=== PATIENT | male | born 1965 | race Caucasian/White ===

== ENCOUNTER → 2018-09-15 | Outpatient (CLI) | payer OTHER ==
[~2018-09-15] MED LIST: ALLO300T2 PO; ASPI-555 PO; CEFA1I IVP; FLEC100T3 PO; FLUD0.1T2 PO; LORA0.5T2 PO; OMEP20CA4 PO; SOTA120T PO
== END | disposition home or self-care (01) ==
LOC: RAH 14:11
PROVIDERS: ATTEND Internal Medicine Infectious Disease
DX: R50.9 Fever, unspecified (principal)
CPT/HCPCS: 78806; A9556

== ENCOUNTER 2021-08-19 05:25 | Emergency (ER) | payer OTHER ==
[~2021-08-19] VITALS: Ht 188 cm; Wt 136.1 kg
[~2021-08-19 05:25] MED LIST changes: -ASPI-555 PO; +ASPI-556 PO
[2021-08-19 05:58] LABS: BASOPHILS % (AUTO) 0.5 % (0.0-5.0); EOSINOPHILS % (AUTO) 3.6 % (0.0-8.0); HEMATOCRIT 44.9 % (42-54); MEAN CORPUSCULAR HEMOGLOBIN 32.9 pg (27.0-33.0); MEAN CORPUSCULAR VOLUME 94.1 fL (79-99); MONOCYTES % (AUTO) 9.3 % (3.0-13.0); NEUTROPHILS % (AUTO) 74.3 % (40.0-77.0); PLATELET COUNT (AUTO) 142 K/uL (130-400); RED BLOOD CELL COUNT(AUTO) 4.77 MIL/uL (4.50-6.20); RED CELL DISTRIBUTION WIDTH 12.3 % (11.0-15.5); WHITE BLOOD COUNT (AUTO) 9.1 K/uL (4.8-10.8)
[2021-08-19 06:14] LABS: ALBUMIN 3.7 g/dL (3.5-5.0); BILIRUBIN,TOTAL 0.9 mg/dL (0.2-1.0); CREATININE 1.3 mg/dL (0.5-1.5); POTASSIUM 4.3 mmol/L (3.5-5.1); TOTAL PROTEIN, SERUM 7.7 g/dL (6.0-8.3)
[2021-08-19 06:20] LABS: APPEARANCE,URINE CLEAR (CLEAR); BILIRUBIN,URINE NEGATIVE (NEGATIVE); COLOR,URINE YELLOW (YELLOW); GLUCOSE, URINE (UA) NEGATIVE (NEGATIVE); KETONES,URINE NEGATIVE (NEGATIVE); LEUKOCYTE ESTERASE ,URINE NEGATIVE (NEGATIVE); NITRATE,URINE NEGATIVE (NEGATIVE); OCCULT BLOOD,URINE TRACE-INTACT (NEGATIVE); PH,URINE 5.5 (5.0-8.0); PROTEIN,URINE NEGATIVE (NEGATIVE); UROBILINOGEN,URINE 0.2 mg/dL (0.2-1.0)
[2021-08-19 07:13] LABS: BACTERIA,URINE Few /HPF (None Seen); RBC,URINE 0-1 /HPF (0-1); SQUAMOUS EPITHELIAL CELL,UR 0-2 /HPF (0-2); WBC,URINE None Seen /HPF (0-1)
[2021-08-19] MEDS ORDERED: BENZ-39 PO (07:14)
[2021-08-19] MEDS ORDERED: P EP PO (07:14)
[2021-08-19] MEDS ORDERED: ALBU0.63 IH (07:20)
[2021-08-19 08:09] VITALS: BP 111/65
== END 2021-08-19 08:32 | disposition home or self-care (01) ==
LOC: EDH 05:25
DX: B34.9 Viral infection, unspecified (principal); Z20.822 Contact with and (suspected) exposure to COVID-19; K21.9 Gastro-esophageal reflux disease without esophagitis; M10.9 Gout, unspecified; Z79.82 Long term (current) use of aspirin; Z79.899 Other long term (current) drug therapy; Z95.810 Presence of automatic (implantable) cardiac defibrillator
CPT/HCPCS: 36415; 71045; 80053; 81001; 85025; 87040 ×2; 87635; 87804 ×2; 93005; 99285; C9803

== ENCOUNTER 2024-11-09 01:18 | Emergency (ER) | payer OTHER ==
[~2024-11-09] VITALS: Ht 185.4 cm; Wt 133.4 kg
[~2024-11-09 01:18] MED LIST changes: +ALBU0.63 IH; +BENZ-39 PO; +P EP PO
--- NOTE | 2024-11-09 01:25 | NUR ---
PRESSURE DEVICE APPLIED TO PT NOSE AT THIS TIME DUE TO NOSE BLEED. PT BLEEDING FROM BILAT NARES FOR PAST HOUR AND A HALF.
--- NOTE | 2024-11-09 01:28 | NUR ---
PT ARRIVED C/O NOSE BLEED FOR PAST HOUR AND A HALF/ PT BLEEDING FROM BOTH NARES. PT APPEARS ANXIOUS AT THIS TIME. VOICED DUE TO AMOUNT OF BLEEDING AND HAVING TO SPIT UP BLOOD. PT DENIES ANY BLOOD THINNERS ONLY ASPRIN 81 MG DAILY. NO TRAUMA PRIOR TO NOSE BLEED PER PT.
[2024-11-09] MEDS: OXYmetazoline HCL SPRAY 100 SPRAYS/15 ML BOTTLE EN ONE (01:43)
[2024-11-09] MEDS ORDERED: TRANEXAMIC ACID 1000MG/10ML TP STA (01:51)
[2024-11-09] MEDS ORDERED: TRANEXAMIC ACID 1000MG/10ML ONE (01:57)
--- NOTE | 2024-11-09 02:04 | NUR ---
ROBYN VILLALOBOS SOAK WITH TXA APPLIED TO Keiko ROLLE AT 0203.
--- NOTE | 2024-11-09 02:06 | ERN ---
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 Patient reports he only takes aspirin 81 mg daily. Denies any nose trauma. Allergies: Coded Allergies: No Known Drug Allergies (Verified Allergy, 05/07/12) Home Meds Active Scripts Amoxicillin/Potassium Clav (Amox Tr-K Clv 875-125 mg Tab) 875 Mg-125 Mg Tablet, 1 TAB PO BID for 7 Days, #14 TAB 0 Refills Prov:SIDNEY FALL SITE TECHNICIAN 11/09/24 Albuterol Sulfate (Albuterol Sulfate) 0.63 Mg/3 Ml Vial.neb, 0.63 MG IH QID for 7 Days, #1 INH 1 Refill Prov:GERMAN CONCEPCION MD 08/19/21 Benzonatate (Tessalon Perles) 100 Mg Cap, 100 MG PO QID for 10 Days, #40 CAP Prov:GERMAN CONCEPCION MD 08/19/21 P-Ephed HCl/Codeine/Guaifen (Coditussin DAC Liquid) 473 Ml Liquid, 10 ML PO Q6HPRN, #250 ML Prov:GERMAN CONCEPCION MD 08/19/21 Cefazolin Sodium (Ancef/Kefzol) 1 Gm/Vial Inj, 2 GM IVP Q8H for 14 Days, #14 DAYS Prov:JAYE FUCHS Jr., MD 08/25/18 Reported Medications Sotalol HCl (Sotalol) 120 Mg Tablet, 120 MG PO TID, TAB 08/20/18 Flecainide Acetate (Flecainide Acetate) 100 Mg Tablet, 200 MG PO BID, TAB 08/20/18 Fludrocortisone Acetate (Fludrocortisone Acetate) 0.1 Mg Tablet, 0.1 MG PO DAILY, TAB 08/20/18 Lorazepam (Lorazepam) 0.5 Mg Tablet, 0.5 MG PO TIDP PRN for ANXIETY/AGITATION, TAB 08/20/18 Aspirin (Aspir 81) 81 Mg Tablet.dr, 81 MG PO HS, TAB 02/06/15 Omeprazole (Prilosec) 20 Mg Capsule.dr, 20 MG PO DAILY, CAP 02/06/15 Allopurinol (Allopurinol) 300 Mg Tablet, 300 MG PO HS, TAB 02/06/15 Past Medical History Past Medical History: Heart Disease Additional Past Medical Hx: GOUT Surgical History: Pacer/AICD Surgical History Other: CARDIAC ABLATION X 2 RN Note Reviewed/Agreed w/PFSH: Yes Review of System Dictation Constitutional: Negative for fever,chills, and weight loss Eyes: Negative for injury, pain,redness, and discharge ENT positive for right nostril bleed Cardiovascular: Negative for chest pain, palpitations, and edema Respiratory: Negative for shortness of breath, cough, and wheezing, Abdomen/GI: Negative for abdominal pain, nausea, vomiting, diarrhea, and constipation Back: Negative for injury and pain : Negative for injury, bleeding and discharge MS/Extremity: Negative for injury and deformity Skin: Negative for rash, and discoloration Neuro: Negative for headache, weakness, numbness, tingling, and seizure Psych: Negative for suicide ideation, homicidal ideation, and hallucinations Initial Vital Sign VS Vital Signs Date Time Temp Pulse Resp B/P (MAP) Pulse Ox O2 Delivery O2 Flow Rate FiO2 11/09/24 01:23 97.9 73 20 129/89 97 Room Air 11/09/24 01:37 0 21 Physical Exam Dictation Vital Signs reviewed General Appearance: Alert, oriented x 3, no acute distress, well developed, nourished. Head and Face: non-traumatic. Eyes: PERRL, pink conjunctivas, eyelid no trauma, anterior chamber with arcus senilis. Ears: Pinnas intact and no signs of trauma or erythema ear canals clear and no discharge TM no erythema Nose: No discharge, right nostril bright red bleeding Oropharynx: Mouth normal, tongue pink. pharynx clear,no erythema, tonsils no exudates, no abscesses noted, mucous membrane moist Neck: Supple, non-tender, no thyromegaly, no masses, no JVD, no bruits Breast:Deferred Chest:No tenderness, no crepitus, no paradoxical movement, no retractions Lungs:Clear, well-ventilated, symmetric, no rales, no wheezing, no rhonchi, no stridor, good breath sounds bilaterally Heart: Regular rate, regular rhythm, no murmur, no gallops Vascular: no peripheral edema, Abdomen: Soft, positive bowel sounds, nondistended, no guarding, nontender, no rebound, no masses no hepatomegaly, no splenomegaly, no Rios's sign, no hernias. Rectal: Deferred Genital: Deferred Neurological: Normal speech, motor function intact, sensory function intact Musculoskeletal: Neck nontender, full range of motion, back nontender, full range of motion, Extremities: nontender, full range of motion Skin: Color pink, dry, no turgor, no rash, no lacerations, no abrasions, no contusions. Lymphatic: Deferred Results (Laboratory/Radiology) Laboratory/Radiology Laboratory Tests Test 11/09/24 02:15 White Blood Count 7.9 K/uL (4.8-10.8) Red Blood Count 4.92 MIL/uL (4.50-6.20) Hemoglobin 16.2 g/dL (14.0-18.0) Hematocrit 45.4 % (42-54) Mean Corpuscular Volume 92.3 fL (79-99) Mean Corpuscular Hemoglobin 32.9 pg (27.0-33.0) Mean Corpuscular Hemoglobin Concent 35.7 g/dL (32.0-36.0) Red Cell Distribution Width 12.8 % (11.0-15.5) Platelet Count 165 K/uL (130-400) Mean Platelet Volume 11.0 fL (7.5-10.5) H Immature Granulocyte % (Auto) 0.4 % (0-1) Neutrophils (%) (Auto) 55.2 % (40.0-77.0) Lymphocytes (%) (Auto) 34.0 % (21.0-51.0) Monocytes (%) (Auto) 6.3 % (3.0-13.0) Eosinophils (%) (Auto) 3.5 % (0.0-8.0) Basophils (%) (Auto) 0.6 % (0.0-5.0) Neutrophils # (Auto) 4.4 K/uL (1.8-7.7) Lymphocytes # (Auto) 2.7 K/uL (1.0-4.8) Monocytes # (Auto) 0.5 K/uL (0.1-1.0) Eosinophils # (Auto) 0.28 K/uL (0.00-0.70) Basophils # (Auto) 0.05 K/uL (0.00-0.20) Absolute Immature Granulocyte (auto 0.03 K/uL (0-1) Nucleated Red Blood Cells 0.0 % (0.0-0.19) Labs Reviewed?: Yes ED Course ED Course Orders Procedure Category Date Status Time Oxymetazoline Hcl PHA 11/09/24 Complete [place] (Afrin) 01:30 Tranexamic Acid PHA 11/09/24 Complete (Cyklokapron) 01:51 Tranexamic Acid PHA 11/09/24 Complete (Cyklokapron) 01:57 Cbc With Differential LAB 11/09/24 Complete 02:24 Ceftriaxone 1g Vial PHA 11/09/24 Complete (Rocephine 1g Inj) 03:00 Current Medications Medications (Trade) Dose Ordered Sig/Jaden Route PRN Reason Start Time Stop Time Status Last Admin Dose Admin Ceftriaxone Sodium (ROCEphine 1G INJ) 1 gm ONCE ONCE IM 11/09/24 03:00 11/09/24 03:15 DC Oxymetazoline HCl (AFrin) 2 SPRAYS ONCE ONCE EN 11/09/24 01:30 11/09/24 01:31 DC 11/09/24 01:43 Tranexamic Acid (Cyklokapron) 1,000 mg ONCE STAT TP 11/09/24 01:51 11/09/24 01:57 DC Tranexamic Acid (Cyklokapron) 1,000 mg STK-MED ONCE .ROUTE 11/09/24 01:57 11/09/24 01:57 DC Vital Signs Date Time Temp Pulse Resp B/P (MAP) Pulse Ox O2 Delivery O2 Flow Rate FiO2 11/09/24 01:37 71 20 127/84 98 Room Air* 0 21 11/09/24 01:23 97.9 73 20 129/89 97 Room Air Medical Decision Making MDM Patient is a 58-year-old male with a history of AICD who presents to the emergency department with complaints of right nostril bleeding about an hour prior to arrival. Patient reports he only takes aspirin 81 mg daily. Denies any nose trauma. Showed no leukocytosis, no thrombocytopenia, no anemia. Patient was placed on rhinorocket soaked with tranexamic acid. Patient bleeding controlled. On physical exam patient in no acute distress, stable vital signs. We will be discharged to follow up with ENT and PCP. Differential diagnosis: posterior nosebleed, thrombocytopenia, anemia Need for hospitalization: Patient does not meet criteria for hospitalization. There are no social concerns with this patient. DX & DISP Disposition: Discharge Departure Impression: Primary Impression: Right-sided epistaxis Condition: Stable Scripts Amoxicillin/Potassium Clav (Amox Tr-K Clv 875-125 mg Tab) 875 Mg-125 Mg Tablet 1 TAB PO BID for 7 Days, #14 TAB 0 Refills Prov: JUAN DAVIDSIDNEY LANCASTER 11/09/24 Additional Instructions: Your rhino rocket/nasal packing device we will need to be removed within 72 hours. You will need to follow up with ENT in your primary doctor. If symptoms worsen, you develop severe bleeding despite packing please return to ER. FOLLOW-UP WITH PRIMARY CARE PROVIDER IN 1 TO 2 DAYS. TAKE MEDICATIONS DIRECTED HERE IN THE EMERGENCY ROOM. OKAY TO CONTINUE HOME MEDICATIONS UNLESS OTHERWISE DISCUSSED DURING YOUR VISIT IN THE EMERGENCY ROOM TODAY. RETURN TO YOUR NEAREST EMERGENCY ROOM IF SYMPTOMS WORSEN OR IF THERE IS NO IMPROVEMENT. CALL 911 IF YOU NEED IMMEDIATE ASSISTANCE. TAKE TYLENOL OR MOTRIN [id number] NEEDED AND IF NO CONTRAINDICATIONS ARE PRESENT. INCREASE ORAL HYDRATION. A WOUND CULTURE OR URINE CULTURE WAS ORDERED HERE IN THE EMERGENCY ROOM DEPARTMENT PLEASE FOLLOW-UP WITH PRIMARY CARE PROVIDER AND ADVISE THEM TO GET REPEAT PORTS FROM OUR FACILITY. IF YOU HAD ANY IRASEMA WRAP/SPLINTS THAT WERE APPLIED HERE, PLEASE DO NOT REMOVE THEM UNTIL YOU SEE YOUR PRIMARY CARE OR SPECIALTY. Referrals: SHELBY YIN MD (PCP) JEAN-PIERRE BABB MD Time of Disposition: 02:54 I have reviewed the case, and I agree with, Diagnosis and Plan SIDNEY FALL November 09, 2024 02:06
[2024-11-09 02:42] LABS: BASOPHILS # (AUTO) 0.05 K/uL (0.00-0.20); BASOPHILS % (AUTO) 0.6 % (0.0-5.0); EOSINOPHILS # (AUTO) 0.28 K/uL (0.00-0.70); EOSINOPHILS % (AUTO) 3.5 % (0.0-8.0); HEMATOCRIT 45.4 % (42-54); IMMATURE GRANULOCYTE ABSOLUTE 0.03 K/uL (0-1); LYMPHOCYTES # (AUTO) 2.7 K/uL (1.0-4.8); MEAN CORPUSCULAR HEMOGLOBIN 32.9 pg (27.0-33.0); MEAN CORPUSCULAR HGB CONC 35.7 g/dL (32.0-36.0); MEAN CORPUSCULAR VOLUME 92.3 fL (79-99); MONOCYTES # (AUTO) 0.5 K/uL (0.1-1.0); MONOCYTES % (AUTO) 6.3 % (3.0-13.0); NEUTROPHILS # (AUTO) 4.4 K/uL (1.8-7.7); NEUTROPHILS % (AUTO) 55.2 % (40.0-77.0); PLATELET COUNT (AUTO) 165 K/uL (130-400); RED BLOOD CELL COUNT(AUTO) 4.92 MIL/uL (4.50-6.20); RED CELL DISTRIBUTION WIDTH 12.8 % (11.0-15.5); WHITE BLOOD COUNT (AUTO) 7.9 K/uL (4.8-10.8)
[2024-11-09] MEDS ORDERED: AMOX1TAB16 PO (02:53)
[2024-11-09] MEDS: cefTRIAXone 1G VIAL IM ONE (03:36)
[2024-11-09 03:47] VITALS: BP 111/62; PULSE 76; RESP 18; TEMP 98; O2SAT 99
== END 2024-11-09 03:46 | disposition home or self-care (01) ==
LOC: EDH 01:18
DX: R04.0 Epistaxis (principal); Z79.82 Long term (current) use of aspirin; Z79.899 Other long term (current) drug therapy; Z95.810 Presence of automatic (implantable) cardiac defibrillator
CPT/HCPCS: 99284; 85025; 36415; 96372; 30901; 99282; J3490; J0696

== ENCOUNTER 2024-11-09 14:18 | Emergency (ER) | payer OTHER ==
[~2024-11-09] VITALS: Ht 185.4 cm; Wt 133.4 kg
[~2024-11-09 14:18] MED LIST changes: +AMOX1TAB16 PO
--- NOTE | 2024-11-09 15:28 | ERN ---
General Chief Complaint: Other Problems Stated Complaint: TUBE REMOVAL Time Seen by MD: 14:19 Source: patient History of Present Illness Initial Comments Patient is a 58-year-old gentleman coming in with a epistaxis controlled with the rhino rocket. Patient states that he placed a rhino rocket the ER the day before that but he states he can not tolerated. Allergies: Coded Allergies: No Known Drug Allergies (Verified Allergy, 05/07/12) Home Meds Active Scripts Amoxicillin/Potassium Clav (Amox Tr-K Clv 875-125 mg Tab) 875 Mg-125 Mg Tablet, 1 TAB PO BID for 7 Days, #14 TAB 0 Refills Prov:SIDNEY FALL MAIL SORTING SUPERVISOR 11/09/24 Albuterol Sulfate (Albuterol Sulfate) 0.63 Mg/3 Ml Vial.neb, 0.63 MG IH QID for 7 Days, #1 INH 1 Refill Prov:GERMAN CONCEPCION MD 08/19/21 Benzonatate (Tessalon Perles) 100 Mg Cap, 100 MG PO QID for 10 Days, #40 CAP Prov:GERMAN CONCEPCION MD 08/19/21 P-Ephed HCl/Codeine/Guaifen (Coditussin DAC Liquid) 473 Ml Liquid, 10 ML PO Q6HPRN, #250 ML Prov:GERMAN CONCEPCION MD 08/19/21 Cefazolin Sodium (Ancef/Kefzol) 1 Gm/Vial Inj, 2 GM IVP Q8H for 14 Days, #14 DAYS Prov:JAYE FUCHS Jr., MD 08/25/18 Reported Medications Sotalol HCl (Sotalol) 120 Mg Tablet, 120 MG PO TID, TAB 08/20/18 Flecainide Acetate (Flecainide Acetate) 100 Mg Tablet, 200 MG PO BID, TAB 08/20/18 Fludrocortisone Acetate (Fludrocortisone Acetate) 0.1 Mg Tablet, 0.1 MG PO DAILY, TAB 08/20/18 Lorazepam (Lorazepam) 0.5 Mg Tablet, 0.5 MG PO TIDP PRN for ANXIETY/AGITATION, TAB 08/20/18 Aspirin (Aspir 81) 81 Mg Tablet.dr, 81 MG PO HS, TAB 02/06/15 Omeprazole (Prilosec) 20 Mg Capsule.dr, 20 MG PO DAILY, CAP 02/06/15 Allopurinol (Allopurinol) 300 Mg Tablet, 300 MG PO HS, TAB 02/06/15 Past Medical History Past Medical History: Heart Disease Medical History Other: GOUT Past Surgical History: Pacer/AICD Surgical History Other: CARDIAC ABLATION X 2 ROS Dictation CONSTITUTIONAL: No chills, no fever, no weakness, no diaphoresis, no malaise. HEAD/FACE: No signs of trauma. EENT: No eye pain, no blurred vision, no tearing, no double vision, no ear pain, no ear discharge, nose pain, nasal congestion, no throat pain, no throat swelling, no mouth pain. RESPIRATORY: No cough, no orthopnea, no SOB, no stridor, no wheezing. CARDIOVASCULAR: No chest pain, no edema, no palpitations, no syncope. GASTROINTESTINAL/ABDOMINAL: No abdominal pain, no constipation, no diarrhea, no nausea, no vomiting. GENITOURINARY: No abnormal discharge, no dysuria, no frequent urination, no hematuria. No complaints of pain in the genitals. MUSCULOSKELETAL: No back pain, no gout, no joint pain, no joint swelling, no muscle pain, no muscle stiffness, no neck pain. INTEGUMENTARY: No change in color, no change in hair/nails, no dryness, no lesion, no lumps, no rash. NEUROLOGICAL/PSYCH: No anxiety, not depressed, no emotional problem, no headache, no numbness, no pre-existing deficit, no history of seizures, no tremors, no weakness. HEMATOLOGIC/LYMPHATIC: Not anemic, no history of blood clots, no apparent bleeding, no bruising, glands not swollen. All Systems Negative, Except as Noted. Physical Exam Physical Exam Dictation VITAL SIGNS: Reviewed. GENERAL APPEARANCE: Alert, oriented x3, no acute distress, obese. HEAD AND FACE: Non-traumatic. EYES: PERRL, pink conjunctivas, eyelid no trauma, anterior chamber clear. EARS: Pinnas intact and no signs of trauma or erythema. Ear canals clear and no discharge. TMs no erythema. NOSE: No discharge, no bleeding. Right Akins rhino rocket in place OROPHARYNX: Mouth normal, teeth no caries, tongue pink. Pharynx clear, no erythema. Tonsils no exudates, no abscesses noted. Mucous membrane moist. NECK: Supple, non-tender, no thyromegaly, no masses, no JVD, no bruits. BREAST: Deferred. CHEST: No tenderness, no crepitus, no paradoxical movement, no retractions. LUNGS: Clear, well-ventilated, symmetric, no rales, no wheezing, no rhonchi, no stridor, good breath sounds bilaterally. HEART: Regular rate, regular rhythm, no murmur, no gallops. VASCULAR: No peripheral edema. ABDOMEN: Soft, positive bowel sounds, nondistended, no guarding, nontender, no rebound, no masses no hepatomegaly, no splenomegaly, no Rios's sign, no hernias. RECTAL: Deferred. GENITAL: Deferred. NEUROLOGICAL: Normal speech, gross motor function intact, gross sensory function intact. MUSCULOSKELETAL: Neck nontender, full range of motion, back nontender, full range of motion. EXTREMITIES: Nontender, full range of motion. SKIN: Color pink, dry, no turgor, no rash, no lacerations, no abrasions, no contusions. LYMPHATICS: Deferred. MDM MDM: Differential diagnosis: Epistaxis, rhino rocket in place, rhino rocket removal, Rationale: Tests considered and ordered secondary to shared decision making include: Previous outside records reviewed: Old ER visits. Risk of complication and/or morbidity or mortality of patient management: None Medications-Per medication reconciliation Need for hospitalization: Patient does not meet criteria for hospitalization. Patient is a 58-year-old gentleman coming in to have rhino rocket removed. States that he has had it for one day but tenderness tolerated. Minora move has been status have subsided. Patient does has a pending visit with the ENT. Patient will be discharged in stable condition patient was educated ways to avoid epistaxis again. ED Course Orders Procedure Category Date Status Time Oxymetazoline Hcl PHA 11/09/24 Complete [place] (Afrin) 15:00 Current Medications Medications (Trade) Dose Ordered Sig/Jaden Route PRN Reason Start Time Stop Time Status Last Admin Dose Admin Oxymetazoline HCl (AFrin) 1 SPRAY EACH NOSTRIL ONCE ONCE EN 11/09/24 15:00 11/09/24 15:01 DC Vital Signs Date Time Temp Pulse Resp B/P (MAP) Pulse Ox O2 Delivery O2 Flow Rate FiO2 11/09/24 14:25 98.4 73 20 134/88 99 Room Air DX & DISP Disposition: Discharge Departure Impression: Primary Impression: Right-sided epistaxis Condition: Stable Additional Instructions: FOLLOW-UP WITH PRIMARY CARE PROVIDER IN 1 TO 2 DAYS. TAKE MEDICATIONS DIRECTED HERE IN THE EMERGENCY ROOM. OKAY TO CONTINUE HOME MEDICATIONS UNLESS OTHERWISE DISCUSSED DURING YOUR VISIT IN THE EMERGENCY ROOM TODAY. RETURN TO YOUR NEAREST EMERGENCY ROOM IF SYMPTOMS WORSEN OR IF THERE IS NO IMPROVEMENT. CALL 911 IF YOU NEED IMMEDIATE ASSISTANCE. TAKE TYLENOL [id number] NEEDED AND IF NO CONTRAINDICATIONS ARE PRESENT. INCREASE ORAL HYDRATION. A WOUND CULTURE OR URINE CULTURE WAS ORDERED HERE IN THE EMERGENCY ROOM DEPARTMENT PLEASE FOLLOW-UP WITH PRIMARY CARE PROVIDER AND ADVISE THEM TO GET REPEAT PORTS FROM OUR FACILITY. IF YOU HAD ANY IRASEMA WRAP/SPLINTS THAT WERE APPLIED HERE, PLEASE DO NOT REMOVE THEM UNTIL YOU SEE YOUR PRIMARY CARE OR SPECIALTY. Referrals: Referrals: SHELBY YIN MD (PCP) Time of Disposition: 15:28 BRENDEN NICHOLAS MD November 09, 2024 15:28
[2024-11-09] MEDS: OXYmetazoline HCL SPRAY 100 SPRAYS/15 ML BOTTLE EN ONE (15:32)
[2024-11-09 15:49] VITALS: BP 131/79; PULSE 70; RESP 20; TEMP 98.4; O2SAT 99
== END 2024-11-09 15:49 | disposition home or self-care (01) ==
LOC: EDH 14:18
DX: R04.0 Epistaxis (principal); Z79.82 Long term (current) use of aspirin; Z79.899 Other long term (current) drug therapy; Z95.810 Presence of automatic (implantable) cardiac defibrillator
CPT/HCPCS: 99282